=== PATIENT | female | born 1985 | race Caucasian/White ===

== ENCOUNTER 2016-07-09 08:49 | Emergency (ER) | payer BC ==
[~2016-07-09] VITALS: Ht 157.5 cm; Wt 72.0 kg
[2016-07-09 08:54] VITALS: Ht 157.5 cm; Wt 72.0 kg
[2016-07-09 11:35] LABS: ADD SCAN DIFF NO
[2016-07-09 11:37] LABS: BASOPHIL # 0.1 10^3/ul (0.0-0.1); BASOPHILS % 0.8 % (0.0-2.0); EOSINOPHILS # 0.1 10^3/ul (0.0-0.5); EOSINOPHILS % 1.7 % (0.0-7.0); HEMATOCRIT 38.1 % (37.0-47.0); HEMOGLOBIN 12.1 g/dl (12.0-16.0); LYMPHOCYTES # 2.1 10^3/ul (0.8-2.9); LYMPHOCYTES % 29.1 % (15.0-51.0); MEAN CORPUSCULAR HEMOGLOBIN 26.6 pg (29.0-33.0); MEAN CORPUSCULAR HGB CONC 31.8 g/dl (32.0-37.0); MEAN CORPUSCULAR VOLUME 83.7 fl (82.0-101.0); MEAN PLATELET VOLUME 8.7 fl (7.4-10.4); MONOCYTE # 0.4 10^3/ul (0.3-0.9); MONOCYTES % 5.5 % (0.0-11.0); NEUTROPHIL # 4.5 10^3/ul (1.6-7.5); NEUTROPHILS % 62.6 % (39.0-77.0); PLATELET COUNT 353 10^3/UL (140-415); RED BLOOD COUNT 4.55 10^6/ul (4.20-5.40); RED CELL DISTRIBUTION WIDTH 14.4 % (11.5-14.5); WHITE BLOOD COUNT 7.1 10^3/ul (4.8-10.8)
[2016-07-09 11:38] LABS: ADD UMIC YES; URINE BILIRUBIN (Dip) NEGATIVE (NEGATIVE); URINE BLOOD (Dip) 1+ (NEGATIVE); URINE COLOR LT. YELLOW (YELLOW); URINE GLUCOSE (Dip) NEGATIVE (NEGATIVE); URINE KETONES (Dip) NEGATIVE (NEGATIVE); URINE LEUKOCYTE ESTERASE (Dip) NEGATIVE (NEGATIVE); URINE NITRITE (Dip) NEGATIVE (NEGATIVE); URINE TOTAL PROTEIN (Dip) NEGATIVE (NEGATIVE); URINE UROBILINOGEN (Dip) 0.2 E.U./dL (0.1-1.0)
[2016-07-09 11:50] LABS: ALBUMIN 4.3 g/dl (3.3-4.9); POTASSIUM 4.6 mmol/L (3.5-5.1)
[2016-07-09 11:51] LABS: SQUAMOUS EPITHELIAL CELL,UR FEW
[2016-07-09 11:52] LABS: CREATININE 0.73 mg/dl (0.44-1.00)
[2016-07-09 11:53] LABS: ALBUMIN/GLOBULIN RATIO 1.07; BILIRUBIN,INDIRECT 0.5 mg/dl (0-1.1); BILIRUBIN,TOTAL 0.5 mg/dl (0.2-1.3); CALCIUM 9.3 mg/dl (8.4-10.2); TOTAL PROTEIN 8.3 g/dl (6.1-8.1)
--- NOTE | 2016-07-09 14:45 | RADRPT ---
PROCEDURE: CT Abdomen and Pelvis without contrast. CLINICAL INDICATION: Lower abdominal pain. TECHNIQUE: CT scan of the abdomen and pelvis without contrast was performed on a multidetector hig h-resolution CT scanner. The patient was scanned without intravenous contrast. Coronal and sagittal reformatted images were obtained from the axial source images. Images were reviewed on a high-resol [employer] PACS workstation. One or more of the following dose reduction techniques were used: Automated exposure control, adjustment of the mA and/or kV according to patient size, use of iterative recon struction technique. The total exam CTDI equals 11.67 mGy and the total exam DLP equals 700.63 mGy- cm. COMPARISON: None. FINDINGS: CT abdomen: The lung bases are clear. The heart size is normal, without pericardial thickening or effusion. Calcific densities are present in the right hepatic lobe, of unclear etiology but likely benign. Ot herwise, the liver is normal in size and density without focal mass or intrahepatic biliary dilatati on. The spleen is normal in size and homogeneous in density. The stomach is grossly unremarkable. The pancreas as visualized is normal. Hyperdensity within the gallbladder may represent a gallblad milagros stone or sludge. There is no evidence of pericholecystic inflammatory change. The biliary tree is unremarkable and there is no evidence for biliary dilatation. The adrenal glands are symmetric and normal. The kidneys are symmetrically unremarkable as well. No renal calculus or obstructive u ropathy or mass lesion is seen. The aorta is of normal caliber. There is no retroperitoneal lymphadenopathy. The jacquie hepatis reg ion is clear. The small bowel and mesentery, as visualized, are unremarkable. CT pelvis: The small bowel loops situated within the pelvis are unremarkable. The pelvic organs are normal. Si mple appearing right adnexal cysts measure up to 3.4 cm The pelvic sidewalls and inguinal regions ar e clear. The sigmoid colon and rectum are unremarkable. The appendix is normal. No mass, lymphadeno coretta, or free fluid is seen. No acute inflammation is seen. The surrounding osseous structures are unremarkable. No osteolytic or osteoblastic lesion is detec vineet. IMPRESSION: 1. No abdominal or pelvic acute inflammatory process, mass, or lymphadenopathy. 2. Hyperdensity within the gallbladder may represent stones and/or sludge. Further evaluation with ultrasound may be useful. 3. Right adnexal/ovarian cysts, within normal limits in a female of reproductive age. 4. Normal appendix. RPTAT: EE .Benedicto Johns MD, Date Time Electronically viewed and signed by .Benedicto Johns MD, MD on 07/09/2016 14:45 .A/
[2016-07-09] MEDS ORDERED: DOCU-144 PO (14:55)
[2016-07-09] MEDS ORDERED: IBUP-1542 PO (14:55)
--- NOTE | 2016-07-09 14:58 | ERD ---
ER Documentation Chief Complaint Date/Time DATE: 07/09/16 TIME: 14:56 Chief Complaint generalized abdominal pain x 3 days; constipation; denies n/v HPI This 30-year-old female presents with lower abdominal pain for last 3 days. She has a history of hard stools and constipation. She denies fevers, vomiting , nausea. She denies urinary complaints. She denies any upper abdominal pain. ROS All systems reviewed and are negative except as per history of present illness. Medications Home Meds Active Scripts Ibuprofen* (Motrin*) 600 Mg Tab, 600 MG PO Q6, #20 TAB Prov:MICHAEL POLLARD MD 07/09/16 Docusate Sodium* (Colace*) 100 Mg Capsule, 100 MG PO BID, #30 CAP Prov:MICHAEL POLLARD MD 07/09/16 Reported Medications [none] No Conflict Check 12/13/10 Allergies Allergies: Coded Allergies: No Known Allergies (Verified Allergy, Unknown, 12/13/10) PMhx/Soc History of Surgery: No Anesthesia Reaction: No Hx Neurological Disorder: No Hx Respiratory Disorders: No Hx Cardiac Disorders: No Hx Psychiatric Problems: No Hx Miscellaneous Medical Probl: No Hx Alcohol Use: No Hx Substance Use: No Hx Tobacco Use: No Physical Exam Vitals Vital Signs Date Time Temp Pulse Resp B/P Pulse Ox O2 Delivery O2 Flow Rate FiO2 07/09/16 08:54 98.3 78 19 115/73 99 Physical Exam Const: [] Alert, [id number] per Head: Atraumatic Eyes: Normal Conjunctiva ENT: Normal External Ears, Nose and Mouth. Neck: Full range of motion..~ No meningismus. Resp: Clear to auscultation bilaterally Cardio: Regular rate and rhythm, no murmurs Abd: Soft, minimal lower abdominal tenderness right equal to left and suprapubic. No rebound. No exquisite tenderness at McBurney's point no Garcia sign., non distended. Normal bowel sounds Skin: No petechiae or rashes Back: No midline or flank tenderness Ext: No cyanosis, or edema Neur: Awake and alert Psych: Normal Mood and Affect Result Diagram: 07/09/16 1119 07/09/16 1119 Results 24 hrs Laboratory Tests Test 07/09/16 11:05 07/09/16 11:19 Urine Bilirubin NEGATIVE Urine Clarity CLEAR Urine Color LT. YELLOW Urine Glucose NEGATIVE% Urine Hemoglobin 1+ Urine Ketones NEGATIVE Urine Leukocyte Esterase NEGATIVE Urine Microscopic RBC 2-5/HPF Urine Microscopic WBC 0-2/HPF Urine Nitrite NEGATIVE Urine Specific Hoagland <=1.005 Urine Squamous Epithelial Cells FEW Urine Total Protein NEGATIVE Urine Urobilinogen 0.2 E.U./dL Urine pH 6.0 Alanine Aminotransferase (ALT/SGPT) 20IU/L Albumin 4.3g/dl Albumin/Globulin Ratio 1.07 Alkaline Phosphatase 75IU/L Anion Gap 19 Aspartate Amino Transf (AST/SGOT) 22IU/L Basophils # 0.110^3/ul Basophils % 0.8% Blood Urea Nitrogen 10mg/dl Calcium Level 9.3mg/dl Carbon Dioxide Level 27mmol/L Chloride Level 105mmol/L Creatinine 0.73mg/dl Direct Bilirubin 0.00mg/dl Eosinophils # 0.110^3/ul Eosinophils % 1.7% Globulin 4.00g/dl Glucose Level 94mg/dl Hematocrit 38.1% Hemoglobin 12.1g/dl Indirect Bilirubin 0.5mg/dl Lipase 43U/L Lymphocytes # 2.110^3/ul Lymphocytes % 29.1% Mean Corpuscular Hemoglobin 26.6pg Mean Corpuscular Hemoglobin Concent 31.8g/dl Mean Corpuscular Volume 83.7fl Mean Platelet Volume 8.7fl Monocytes # 0.410^3/ul Monocytes % 5.5% Neutrophils # 4.510^3/ul Neutrophils % 62.6% Nucleated Red Blood Cells # 0.010^3/ul Nucleated Red Blood Cells % 0.0/100WBC Platelet Count 76917^3/UL Potassium Level 4.6mmol/L Red Blood Count 4.5510^6/ul Red Cell Distribution Width 14.4% Sodium Level 146mmol/L Total Bilirubin 0.5mg/dl Total Protein 8.3g/dl White Blood Count 7.110^3/ul Procedures/MDM Urine shows hemoglobin without additional abnormalities. CBC and CMP showed no significant acute abnormalities and lipase is normal. HCG is negative. Given the uncertain cause of pain a CT noncontrast was performed which showed small ovarian cysts and possible gallstones which are not in the area of patient's pain. Is otherwise no acute findings. Patient presents with lower abdominal pain of uncertain etiology, possibly due to constipation ovarian cyst. There is no evidence to suggest appendicitis, cholecystitis, biliary duct obstruction , abscess, additional causes of emergent abdominal pain. She was treated with Colace ibuprofen and further observation at home. The patient was stable with no new complaints during the ER course. Clinically, there is no current evidence to suggest meningitis, sepsis, acute abdomen, pneumonia, acute coronary syndrome, pulmonary embolism, or any other emergent condition appearing to require further evaluation or hospitalization. The patient should certainly return for any new or worsening symptoms per the aftercare instructions. They should otherwise follow-up with her primary care doctor for reevaluation this week. Departure Diagnosis: Primary Impression: Abdominal pain Abdominal location: lower abdomen, unspecified Qualified Code: R10.30 - Lower abdominal pain Condition: Stable Patient Instructions: Abdominal Pain Additional Instructions: The uncertain cause of pain. Studies today show no emergent cause or source of pain. Recommend treatment for constipation and further observation. Recheck for fevers, vomiting, worsening pain or localized pain. See primary doctor for follow-up. MICHAEL POLLARD MD Jul 09, 2016 14:58
[2016-07-09 15:16] VITALS: BP 110/68; PULSE 59; RESP 17
== END 2016-07-09 15:16 | disposition home or self-care (01) ==
LOC: E/R 08:49
DX: R10.30 Lower abdominal pain, unspecified (principal)
CPT/HCPCS: 36415; 74176; 80053; 81001; 83690; 85025; 87591; Z7502; 81003

== ENCOUNTER 2017-09-12 20:20 | Emergency (ER) | END 2017-09-13 00:39 | disposition home or self-care (01) ==

== ENCOUNTER 2018-01-11 01:19 | Emergency (ER) | END 2018-01-11 06:57 | disposition home or self-care (01) ==

== ENCOUNTER 2018-01-12 04:09 | Emergency (ER) | END 2018-01-12 07:09 | disposition home or self-care (01) ==